=== PATIENT | male | born 1960 | race Caucasian/White ===

== ENCOUNTER → 2021-12-18 | Outpatient (CLI) | payer OTHER ==
[~2021-12-18] MED LIST: ASPIRIN EC81 MG PO; ATORVASTATIN CA20 MG PO; FLOMAX0.4 MG PO; IBUPROFEN600 MG PO; KLONOPIN TAB 00.5 MG PO; LISINOPRIL10 MG PO; LOPRESSOR 25 MG25 MG PO; NORCO 7.5-3251 EACH PO; PANTOPRAZOLE SO40 MG PO; TORADOL 10 MG T10 MG PO
== END ==
LOC: KOH-I 10:25
DX: M25.532 Pain in left wrist (principal); M79.89 Other specified soft tissue disorders
CPT/HCPCS: 73110

== ENCOUNTER 2021-12-28 17:40 | Inpatient (IN) | payer OTHER ==
[~2021-12-28] VITALS: Ht 175.3 cm; Wt 74.8 kg
[2021-12-28 20:18] LABS: HEMOGLOBIN 14.3 gm/dl (14.0-17.5); RED BLOOD COUNT 4.85 M/UL (4.20-5.50); WHITE BLOOD COUNT 8.5 K/UL (4.5-11.0)
[2021-12-28 20:39] LABS: BUN/CREATININE RATIO 20 (0-10)
[2021-12-29 04:45] LABS: HEMOGLOBIN 13.2 gm/dl (14.0-17.5); RED BLOOD COUNT 4.61 M/UL (4.20-5.50); WHITE BLOOD COUNT 9.1 K/UL (4.5-11.0)
[2021-12-29 04:58] LABS: BUN/CREATININE RATIO 22 (0-10)
[2021-12-29] MEDS ORDERED: ZESTRIL/PRINIVI10 MG PO (10:12)
[2021-12-29] MEDS ORDERED: VITAMIN D31250 MCG PO (10:13)
[2021-12-29] MEDS ORDERED: AMOX TR-K CLV1 EAC4 PO (11:46)
== END 2021-12-29 12:05 | disposition left against medical advice (07) | DRG 603 ==
LOC: ER1 17:40 → CDU 22:23
PROVIDERS: Family Medicine; ADMIT Internal Medicine
DX: L03.211 Cellulitis of face (principal); I69.351 Hemiplegia and hemiparesis following cerebral infarction affecting right dominant side; I10 Essential (primary) hypertension; Z20.822 Contact with and (suspected) exposure to COVID-19; F17.210 Nicotine dependence, cigarettes, uncomplicated; Z90.49 Acquired absence of other specified parts of digestive tract; Z98.890 Other specified postprocedural states; Z82.49 Family history of ischemic heart disease and other diseases of the circulatory system
CPT/HCPCS: 70450; 70486; 70487; 80048; 80053; 83605; 85025; 86140; 87040; 96365; 96366; 96367; 96376; 99283; J0295; J3370; J7030; J7070